=== PATIENT | female | born 1990 | race Caucasian/White ===

== ENCOUNTER 2019-04-14 17:52 | Inpatient (IN) | payer OTHER ==
[2019-04-14 18:53] VITALS: BMI 31.8
[2019-04-14] MEDS: DEXTROSE 5%-LACTATED RINGERS 1,000 ML IV SCH (19:30)
[2019-04-14] MEDS ORDERED: PROMETHAZINE HCL 25 MG/1 ML VIAL IVPUSH ONE (19:50)
[2019-04-14] MEDS ORDERED: BUTORPHANOL TARTRATE 1 MG/ML VIAL IVPB ONE (19:50)
--- NOTE | 2019-04-14 19:50 | HP ---
Past Medical History - Primary Care Physician PCP:: Lucila Gregory - Admission Chief Complaint: 28yo P2 @ 40.1 wks presents for IOL, feels some minor cramping , no VB, no LOF, + FM History Source: Patient - Past Medical History ...: 3 ...Para: 2 ...Term: 2 ...: 0 ...Spon : 0 ...Induced : 0 ...Multiple Gestation: 0 ...LMP: 07/09/18 ... Weeks Gestation by Dates: 39.6 ...EDC by Dates: 04/15/19 - Smoking History Smoking history: Never smoked Have you smoked in the past 12 months: No Aproximately how many cigarettes per day: 0 - Alcohol/Substance Use Hx Alcohol Use: No Home Medications - Allergies Allergies/Adverse Reactions: Allergies Allergy/AdvReac Type Severity Reaction Status Date / Time No Known Drug Allergies Allergy Verified 04/14/19 19:43 - Home Medications Home Medications: Ambulatory Orders Ferrous Sulfate 1 amp PO DAILY 04/14/19 Tablet 1 tab PO DAILY 04/14/19 Physical Exam - Maternity Vital Signs: Vital Signs Temperature 98.1 F 04/14/19 17:52 Pulse Rate 76 04/14/19 17:52 Respiratory Rate 20 04/14/19 17:52 Blood Pressure 137/66 04/14/19 17:52 O2 Sat by Pulse Oximetry (%)
[2019-04-14 20:23] LABS: BASO % 0.6 % (0-2.0); EOS % 2.2 % (0-4.5); HEMATOCRIT 34.9 % (32.4-45.2); HEMOGLOBIN 11.7 GM/dL (10.7-15.3); LYMPH % 24.5 % (8-40); MCH 29.2 pg (25.7-33.7); MCHC 33.4 g/dl (32.0-36.0); MEAN CELL VOLUME 87.4 fl (80-96); MONO % 12.2 % (3.8-10.2); NEUT % 60.5 % (42.8-82.8); PLATELET COUNT 241 K/MM3 (134-434); RDW 16.4 % (11.6-15.6)
[2019-04-14 20:40] LABS: BLOOD UREA NITROGEN 9.1 mg/dL (7-18); CALCIUM 8.4 mg/dL (8.5-10.1); CREATININE 0.6 mg/dL (0.55-1.3); POTASSIUM 4.2 mmol/L (3.5-5.1)
[2019-04-14] MEDS: MISOPROSTOL 100 MCG TABLET PV SCH ×2 (20:50→22:00)
[2019-04-14 20:54] LABS: INR 0.92 (0.83-1.09); PROTHROMBIN TIME (PATIENT) 10.9 SEC (9.7-13.0)
[2019-04-14 20:57] LABS: ACTIVATED PTT 30.2 SECONDS (25.2-36.5)
[2019-04-14] MEDS ORDERED: MISOPROSTOL 100 MCG TABLET PV SCH (22:00)
[2019-04-14] MEDS ORDERED: BUTORPHANOL TARTRATE 1 MG/ML VIAL ONE ×2 (22:32)
[2019-04-14] MEDS ORDERED: PROMETHAZINE HCL 25 MG/1 ML VIAL ONE (22:33)
[2019-04-15] MEDS ORDERED: OXYTOCIN 20 UNITS in 0.9% NS 20 UNIT/1,000 ML INFUS.BAG IV ONE ×2 (00:24→02:18)
[2019-04-15] MEDS ORDERED: BENZOCAINE 28 GM HEMORRHOIDAL OINTMENT TP PRN (01:02)
[2019-04-15] MEDS ORDERED: BENZOCAINE 20% 57 GM BOTTLE TP PRN (01:02)
[2019-04-15] MEDS ORDERED: IBUPROFEN 600 MG TABLET (FP) PO PRN (01:02)
[2019-04-15] MEDS ORDERED: METHYLERGONOVINE MALEATE 0.2 MG/1 ML AMP IM PRN (01:02)
[2019-04-15] MEDS ORDERED: ACETAMINOPHEN 325 MG TABLET (FP) PO PRN (01:02)
[2019-04-15] MEDS ORDERED: WITCH HAZEL 50% (TUCKS) 40 PAD/JAR PAD TP PRN (01:02)
[2019-04-15] MEDS ORDERED: BISACODYL 10 MG SUPP.RECT RC PRN (01:02)
--- NOTE | 2019-04-15 01:02 | PN ---
Delivery - Delivery Vaginal Delivery: No Problems Type of Anesthesia: Local, General (Stadol sadation) Episiotomy/Laceration: Midline, 1st degree EBL (cc): 400 Delivery, Single - Stages of Labor Date 1st Stage Initiatied: 04/14/19 Time 1st Stage Initiated: 22:45 Date 2nd Stage Initiated: 04/15/19 Time 2nd Stage Initiated: 00:26 Date of Delivery: 04/15/19 Time of Delivery: 00:28 Date Placenta Delivered: 04/15/19 Time Placenta Delivered: 00:33 Placenta: Yes: Spontaneous - Condition of Ramp Manager/Washer Operator Present: No Infant Gender: Female Weight: 7 lb 8 oz Position: OA - 1 Minute Total Score: 9 5 Minutes Total Score: 9 - [place] Feeding Plan Initial Plan: Exclusive throughout hospitalization Remarks - Remarks Remarks: Uncomplicated delivery of the head Cord around the neck x 1, reduced without difficulty Shoulders delivered without difficulty
[2019-04-15] MEDS ORDERED: D5W-LR W/ 20 UNITS OXYTOCIN 20 UNIT/1,000 ML INFUS.BAG IV SCH (01:15)
[2019-04-15] MEDS: ELECTROLYTE-148 SOLN 1,000 ML IV SCH (01:23)
[2019-04-15 01:28] LABS: ARTERIAL BLOOD GAS PCO2 50.8 mmHg (35-45); ARTERIAL BLOOD GAS pH 7.25 (7.35-7.45)
[2019-04-15] MEDS ORDERED: OXYTOCIN 20 UNITS in 0.9% NS 20 UNIT/1,000 ML INFUS.BAG IV SCH (01:30)
[2019-04-15 01:32] LABS: ARTERIAL BLD GAS O2 SATURATION 15.3 % (95-98)
[2019-04-15 01:33] LABS: ARTERIAL BLOOD GAS BASE EXCESS 6.2 meq/l (-2-2)
[2019-04-15 01:40] LABS: VENOUS PC02 38.2 mmHg (41-51); VENOUS PH 7.37 (7.31-7.41); VENOUS PO2 44.1 mmHg (30-40)
[2019-04-15 01:46] LABS: ARTERIAL BLOOD GAS PO2 17.3 mmHg (80-105)
[2019-04-15] MEDS: PRENATAL VITAMINS W/ FOLIC ACID TABLET (FP) PO SCH (10:00)
[2019-04-15] MEDS: FERROUS SO4 325 MG TABLET (FP) PO SCH ×2 (10:00→22:22)
[2019-04-16] MEDS: DEXTROSE 5%-LACTATED RINGERS 1,000 ML IV SCH (03:08)
[2019-04-16] MEDS: ELECTROLYTE-148 SOLN 1,000 ML IV SCH (03:08)
[2019-04-16 07:21] LABS: BASO % 0.5 % (0-2.0); EOS % 3.5 % (0-4.5); HEMOGLOBIN 10.7 GM/dL (10.7-15.3); LYMPH % 24.8 % (8-40); MCHC 34.4 g/dl (32.0-36.0); MEAN PLT VOLUME 7.9 fl (7.5-11.1); MONO % 13.2 % (3.8-10.2); PLATELET COUNT 219 K/MM3 (134-434); RBC 3.57 M/mm3 (3.60-5.2); RDW 16.2 % (11.6-15.6); WHITE BLOOD COUNT 7.9 K/mm3 (4.0-10.0)
--- NOTE | 2019-04-16 07:58 | PN ---
Post Progress Note - Subjective Subjective: Patient without acute complaints. Reports tolerating oral intake without nausea or vomiting. Ambulating without dizziness. Denies fevers or chills. Pain well controlled with oral pain medication. Pumping/breast feeding without issue. Passing flatus Post Day: 1 Type of Delivery: Vital Signs: Vital Signs Temperature 97.8 F 04/15/19 22:00 Pulse Rate 83 04/15/19 22:00 Respiratory Rate 18 04/15/19 22:00 Blood Pressure 104/59 L 04/15/19 22:00 O2 Sat by Pulse Oximetry (%) 100 04/15/19 01:45 Breast Exam: Yes: Soft Uterus: Yes: Fundus Firm, Fundus below umbilicus Abdomen/GI: Yes: Abdomen soft, Tolerating PO Lochia: Yes: Rubra Lochia, amount: Small Extremities: Yes: Calves non-tender Perineum: Yes: Intact Activity: Ambulating - Labs Labs: CBC WBC 6.0 K/mm3 (4.0-10.0) 04/14/19 19:20 RBC 4.00 M/mm3 (3.60-5.2) 04/14/19 19:20 Hgb 11.7 GM/dL (10.7-15.3) 04/14/19 19:20 Hct 34.9 % (32.4-45.2) D 04/14/19 19:20 MCV 87.4 fl (80-96) 04/14/19 19:20 MCH 29.2 pg (25.7-33.7) 04/14/19 19:20 MCHC 33.4 g/dl (32.0-36.0) 04/14/19 19:20 RDW 16.4 % (11.6-15.6) H 04/14/19 19:20 Plt Count 241 K/MM3 (134-434) 04/14/19 19:20 MPV 8.0 fl (7.5-11.1) 04/14/19 19:20 Absolute Neuts (auto) 3.7 K/mm3 (1.5-8.0) 04/14/19 19:20 Neutrophils % 60.5 % (42.8-82.8) 04/14/19 19:20 Lymphocytes % 24.5 % (8-40) 04/14/19 19:20 Monocytes % 12.2 % (3.8-10.2) H 04/14/19 19:20 Eosinophils % 2.2 % (0-4.5) D 04/14/19 19:20 Basophils % 0.6 % (0-2.0) 04/14/19 19:20 Nucleated RBC % 0 % (0-0) 04/14/19 19:20 Assessment/Plan 28yo s/p , doing well stable, afebrile. Asymptomatic for anemia. care instructions reviewed. Continue routine care. Ambulation encouraged Discharge instruction reviewed.
--- NOTE | 2019-04-16 08:01 | DS ---
Physical Exam-ATOMIC PHYSICS PROFESSOR Vital Signs: Vital Signs Temperature 97.8 F 04/15/19 22:00 Pulse Rate 83 04/15/19 22:00 Respiratory Rate 18 04/15/19 22:00 Blood Pressure 104/59 L 04/15/19 22:00 O2 Sat by Pulse Oximetry (%) 100 04/15/19 01:45 Constitutional: Yes: Well Nourished, No Distress, Calm Eyes: Yes: WNL, Conjunctiva Clear HENT: Yes: WNL, Atraumatic, Normocephalic Neck: Yes: WNL, Supple, Trachea Midline Cardiovascular: Yes: WNL, Regular Rate and Rhythm Respiratory: Yes: WNL, Regular, CTA Bilaterally Gastrointestinal: Yes: WNL, Normal Bowel Sounds, Soft ...Rectal Exam: Yes: Deferred Renal/: Yes: WNL External Genitalia: Yes: Normal Breast(s): Yes: WNL Musculoskeletal: Yes: WNL Extremities: Yes: WNL Edema: No Integumentary: Yes: WNL Neurological: Yes: WNL, Alert, Oriented ...Motor Strength: WNL Psychiatric: Yes: WNL, Alert, Oriented Labs: CBC, BMP 04/14/19 19:20 Delivery - Delivery Vaginal Delivery: No Problems Type of Anesthesia: Local, General (Stadol sadation) Episiotomy/Laceration: Midline, 1st degree EBL (cc): 400 Delivery, Single - Stages of Labor Date 1st Stage Initiatied: 04/14/19 Time 1st Stage Initiated: 22:45 Date 2nd Stage Initiated: 04/15/19 Time 2nd Stage Initiated: 00:26 Date of Delivery: 04/15/19 Time of Delivery: 00:28 Time Placenta Delivered: 00:33 Placenta: Yes: Spontaneous, Normal Configuration - Condition of Infant Lead Javascript Engineer/Loss Control Consultant Present: No Infant Gender: Female Weight: 3.402 kg Position: OA Total Hours ROM (Hrs/Mins): 1min - 1 Minute Total Score: 9 5 Minutes Total Score: 9 - [place] Feeding Plan Initial Plan: Exclusive throughout hospitalization Discharge Summary Reason For Visit: LABOR INDUCTION Procedures: Principal: Hospital Course: Normal recovery Condition: Good - Instructions Diet, Activity, Other Instructions: Physical activity Resume your normal everyday activity as tolerated no heavy lifting or exercise until seen by your surgeon. You may walk unlimited jose of and climb stairs. You may resume driving the car when you feel safe and comfortable behind the wheel. No sexual activity as instructed. Wound care If you have a bandage, leave it on, and keep dry for 48-72 hours. After that time discard the outer bandage. If they are tapes on the skin under the out of bandage leave them in place. They will peel off in the next 7 to 10 days. Do Not Peel them off. You may shower the day after surgery. If there are tapes present on the skin, you may shower over them. Diet There are no dietary restrictions. Eat healthy, high-fiber foods. Drink 6 to 8 glasses of liquid each day. This will assist in keeping your bowels are regular. Pain management You may take Tylenol or acetaminophen or Ibuprofen (for example, Motrin, Advil etc.) from my pain prescription medication is ordered should be taken as prescribed for moderate to severe pain. Call MD for any of the following: Severe pain not relieved by medication Fever of 101 or higher Excessive bleeding or drainage on dressing Inability to urinate Referrals: Lucila Gregory MD [Staff Physician] - Disposition: HOME - Home Medications Comprehensive Discharge Medication List: Ambulatory Orders Ferrous Sulfate 1 amp PO DAILY 04/14/19 Tablet 1 tab PO DAILY 04/14/19
[2019-04-16] MEDS: FERROUS SO4 325 MG TABLET (FP) PO SCH ×2 (09:09→21:48)
[2019-04-16] MEDS: PRENATAL VITAMINS W/ FOLIC ACID TABLET (FP) PO SCH (09:09)
[2019-04-16] MEDS ORDERED: SENNOSIDES/DOCUSATE COMBO (SENNA PLUS) TABLET (UD) PO PRN (22:00)
[2019-04-17] MEDS: PRENATAL VITAMINS W/ FOLIC ACID TABLET (FP) PO SCH (09:50)
[2019-04-17] MEDS: FERROUS SO4 325 MG TABLET (FP) PO SCH (09:50)
[2019-04-17 10:32] VITALS: BP 110/66; PULSE 66; TEMP 97.6
== END 2019-04-17 12:20 | disposition home or self-care (01) | DRG 807 ==
LOC: JLDR 17:52 → J3W 04-15 02:35
PROVIDERS: ADMIT Obstetrics & Gynecology; ATTEND Obstetrics & Gynecology
PROC: 3E033VJ Introduction of Other Hormone into Peripheral Vein, Percutaneous Approach (ICD-10-PCS; 2019-04-14)
PROC: 10E0XZZ Delivery of Products of Conception, External Approach (ICD-10-PCS; principal; 2019-04-15)
PROC: 0HQ9XZZ Repair Perineum Skin, External Approach (ICD-10-PCS; 2019-04-15)
DX: O48.0 Post-term pregnancy (principal); Z37.0 Single live birth; O69.81X0 Labor and delivery complicated by cord around neck, without compression, not applicable or unspecified; O70.0 First degree perineal laceration during delivery; Z3A.40 40 weeks gestation of pregnancy
CPT/HCPCS: 36415; 36600; 59409; 80048; 82803; 85025; 85610; 85730; 86593; 86850; 86900; 86901

== ENCOUNTER 2019-06-17 07:28 | Day surgery (SDC) | payer OTHER ==
[2019-06-16 17:16] VITALS: BMI 29.0
[2019-06-17] MEDS ORDERED: PROPOFOL 20 ML ONE (08:11)
[2019-06-17] MEDS ORDERED: ROCURONIUM BROMIDE 50 MG/5 ML SYRINGE ONE (08:11)
[2019-06-17] MEDS ORDERED: MIDAZOLAM HCL 2 MG/2 ML SINGLE DOSE VIAL ONE (08:11)
--- NOTE | 2019-06-17 08:48 | HP ---
History & Physical Update - History History: No Change - Physical Physical: No Change - Assessment Assessment: No Change - Plan Plan: No Change (Consent signed and witnessed. Procedure explained, all questions answered)
--- NOTE | 2019-06-17 08:48 | OP ---
Operative Note - Note: Operative Date: 06/17/19 Pre-Operative Diagnosis: 28yo P3 Multiparity, desiring permanent sterilization Operation: Laparoscopic bilateral salpingectomy Findings: Normal pelvic anatomy RLQ radha noted Post-Operative Diagnosis: Same as Pre-op Surgeon: Lucila Gregory Smoking Tobacco Packing Machine Hand: Black Nelson Anesthesiologist/SAFETY AND HEALTH MANAGER: Basim Boswell Anesthesia: General Specimens Removed: bilateral fallopian tubes Estimated Blood Loss (mls): 1 Drains, Volume Out (mls): 200 Fluid Volume Replaced (mls): 1,000 Operative Report Dictated: Yes
[2019-06-17] MEDS ORDERED: IBUPROFEN 600 MG TABLET (FP) PO PRN (08:49)
[2019-06-17] MEDS ORDERED: oxyCODONE HCL 5 MG TABLET PO PRN (08:49)
[2019-06-17] MEDS ORDERED: IBUPROFEN 800 MG/8 ML IJ IVPB PRN (08:49)
[2019-06-17] MEDS ORDERED: ONDANSETRON 4 MG/2 ML VIAL IVPUSH PRN (08:49)
[2019-06-17] MEDS ORDERED: ELECTROLYTE-148 SOLN 1,000 ML IV SCH (09:00)
[2019-06-17] MEDS ORDERED: DEXAMETHASONE SOD PHOSPHATE 4 MG/1 ML VIAL ONE (09:06)
[2019-06-17] MEDS ORDERED: KETOROLAC TROMETHAMINE 30 MG/1 ML VIAL ONE (09:06)
[2019-06-17] MEDS ORDERED: ceFAZolin SODIUM 1 GM VIAL IVPB ONE (09:10)
[2019-06-17] MEDS ORDERED: ceFAZolin SODIUM 1 GM VIAL ONE (09:13)
[2019-06-17] MEDS ORDERED: GLYCOPYRROLATE 0.2 MG/1 ML VIAL ONE ×2 (09:47→09:49)
[2019-06-17] MEDS ORDERED: NEOSTIGMINE METHYLSULFATE 0.5 MG/ML - 10 ML MDV ONE (09:48)
--- NOTE | 2019-06-17 10:19 | SURG ---
Surgery Folder Seamer Note Folder Seamer: Black Nelson PA-C Date of Service: 06/17/19 Diagnosis: Multiparity, desiring permanent sterilization Procedure: Laparoscopic bilateral salpingectomy I was present for the entirety of the operative procedure. For further detail, please refer to operative report. Visit type - Case Type Case Type: Scheduled - New patient This patient is new to me today: Yes Date on this admission: 06/17/19
[2019-06-17] MEDS ORDERED: ACETAMINOPHEN INJECTION 100 ML IVPB ONE (10:23)
[2019-06-17] MEDS ORDERED: ACETAMINOPHEN 1000 MG/100 ML VIAL (NON FORMULARY) IVPB ONE (11:00)
[2019-06-17 11:20] VITALS: TEMP 97.9
[2019-06-17] MEDS ORDERED: ONDANSETRON 4 MG/2 ML VIAL ONE (11:20)
[2019-06-17 13:03] VITALS: BP 110/60; PULSE 60
--- NOTE | 2019-06-18 21:12 | OP ---
DATE OF OPERATION: 06/17/2019 PREOPERATIVE DIAGNOSIS: A 28-year-old para 3, multiparity desires permanent sterilization. OPERATION: Laparoscopic bilateral salpingectomy. FINDINGS: Normal pelvic anatomy. Right lower quadrant radha noted invaginated into the anterior abdominal wall. POSTOPERATIVE DIAGNOSIS: A 28-year-old para 3, multiparity desires permanent sterilization. SURGEON: Lucila Gregory MD MANDARIN SPEAKING NANNY: MARCI Ayon ANESTHESIOLOGIST: Basim Boswell MD ANESTHESIA: General. DESCRIPTION OF THE OPERATIVE PROCEDURE: After assuring informed consent, patient was brought to the operating room where she was placed in dorsal lithotomy position. Perineum and abdomen were prepped and draped in sterile fashion. HUMI articulator was placed in the usual fashion as well as Harry catheter was placed under the sterile conditions. Subsequently, the attention was brought to the abdomen. The 5-mm 0-degree laparoscope was assembled. The 5-mm infraumbilical incision was made with a scalpel. Veress needle was introduced without difficulty, and normal saline aspiration test was performed. The 5-mm trocar was placed together with laparoscope under direct visualization. Abdomen was entered without any difficulty, and above findings were noted. Subsequently, right and left lower quadrant trocars were placed under direct visualization without any trauma to underlying organs. Bilateral fallopian tubes and ovaries were noted to be normal. The right fallopian tube was grasped at the fimbriated edge and dissected off the IP ligament with LigaSure, and subsequently the rest of the fallopian tube was dissected off the broad ligament with excellent hemostasis. The cornu edge of the fallopian tube was cauterized in 3 consecutive bites to assure the closure of the fallopian tube, and the entire fallopian tube was dissected off the broad ligament. Identification procedure was performed on the left. Each fallopian tube was removed through the 5-mm trocar and sent to Pathology. Subsequently, the trocars were removed under direct visualization. Abdomen gas was allowed to escape, and skin was closed with 4-0 Biosyn. The HUMI and Harry were removed. Patient was positioned supine. Sponge and instrument count was correct x2. Patient was brought to the recovery room in stable condition. Karla [id number]
--- NOTE | 2019-06-20 15:12 | PATH ---
Surgical Pathology Report Patient Name: LAURA MIMS Med. Rec. #: [id number] /Age/Gender: 1990 (Age: 28) / F Account: [id number] Location: [facility] SURGICAL Taken: 06/17/2019 Received: 06/18/2019 Reported: 06/20/2019 Physicians: Lucila Gregory M.D. Specimen(s) Received BILATERAL FALLOPIAN TUBES Clinical History Desires sterilization, multiparity Final Diagnosis FALLOPIAN TUBES, BILATERAL, LAPAROSCOPIC SALPINGECTOMY: FALLOPIAN TUBE WITH PARATUBAL CYST (INCLUDING FIMBRIATED END AND FULL LUMINAL PORTION). UNREMARKABLE FALLOPIAN TUBE (INCLUDING FIMBRIATED END AND FULL LUMINAL PORTION). Electronically Signed Lili Martínez M.D. Gross Description Received in formalin labeled "bilateral fallopian tubes" are 2 undesignated fallopian tubes. Outer surface is hernández-momin and unremarkable. One of the fallopian tubes came in 2 fragments and measures 6 x 0.7 and 2.5 x 1.5 x 1 (fimbriated end). A 0.7 cm paratubal cyst is identified. A separate intact fimbriated fallopian tube measures 8 x 0.7 cm. Both tubes have unremarkable lumen identified. Skin Care Instructor sections are submitted in 4 cassettes as follows: 1- fimbriated end and paratubal cyst, fragmented fallopian tube, 2- cross sections, fragmented fallopian tube. 3- fimbriated end, intact fallopian tube, 4- cross sections, intact fallopian tube. MLSZ/06/18/2019 [place]/06/18/2019
== END 2019-06-17 13:12 | disposition home or self-care (01) ==
LOC: JASU-SURG 07:28
PROVIDERS: ATTEND Obstetrics & Gynecology
PROC: 0U574ZZ Destruction of Bilateral Fallopian Tubes, Percutaneous Endoscopic Approach (ICD-10-PCS; principal; 2019-06-17 09:00)
DX: Z30.2 Encounter for sterilization (principal)
CPT/HCPCS: 84703; 88302-TC; 94760; J0131